=== PATIENT | male | born 1990 | race Caucasian/White ===

== ENCOUNTER 2016-07-11 17:57 | Emergency (ER) | payer SELFPAY ==
[~2016-07-11] VITALS: Ht 167.6 cm; Wt 75.0 kg
[2016-07-11 18:00] VITALS: BP 127/73; PULSE 73; RESP 16; TEMP 98.2; O2SAT 98
--- NOTE | 2016-07-11 18:21 | PD ---
HPI Chief Complaint: Chest Pain Time Seen by Provider: 18:14 Travel History International Travel<30 days: No Contact w/Intl Traveler<30days: No Traveled to known affect area: No History of Present Illness HPI 25-year-old male here for evaluation of chest pain. The patient reports having intermittent episodes of chest pain for quite some time now. Currently he is chest pain-free. He states that the frequency of his pain has been increasing, so he became concerned and decided to be evaluated today. He reports that the pains that he experiences are sharp, substernal, lasted for several seconds. No modifying factors. No known history of cardiac disease. He believes his mom had cardiac disease and believes it was secondary to illicit drug use. He denies using any illicit drugs. He does not smoke. No fevers, chills, cough, or recent illness. No paresthesias or motor deficits. No dyspnea. No history of DVT or PE. No hemoptysis. PFSH Past Medical History Medical History: Denies Significant Hx Diminished Hearing: No Influenza Vaccination: Yes Past Surgical History Surgical History: No Previous Surgery Social History Alcohol Use: Yes (rarely) Tobacco Use: No Substance Use: No Allergies-Medications (Allergen,Severity, Reaction): Coded Allergies: No Known Allergies (Unverified , 07/14/15) Reported Meds & Prescriptions Reported Meds & Active Scripts Active No Active Prescriptions or Reported Medications Review of Systems Except as stated in HPI: all other systems reviewed are Neg Physical Exam Narrative GENERAL: Well-developed, well-nourished, comfortable, no acute distress. SKIN: Warm and dry. No rash. HEAD: Atraumatic. Normocephalic. EYES: Pupils equal and round. No scleral icterus. No injection or drainage. ENT: No nasal bleeding or discharge. Mucous membranes pink and moist. NECK: Trachea midline. No JVD. CARDIOVASCULAR: Regular rate and rhythm. Distal pulses brisk and equal bilaterally. RESPIRATORY: No accessory muscle use. Clear to auscultation. Breath sounds equal bilaterally. GASTROINTESTINAL: Abdomen soft, non-tender, nondistended. MUSCULOSKELETAL: No obvious deformities. No clubbing. No cyanosis. No edema. NEUROLOGICAL: Awake and alert. No obvious cranial nerve deficits. Motor grossly within normal limits. Normal speech. PSYCHIATRIC: Appropriate mood and affect; insight and judgment normal. Data Data Last Documented VS Vital Signs Date Time Temp Pulse Resp B/P Pulse Ox O2 Delivery O2 Flow Rate FiO2 07/11/16 18:34 80 16 168/90 98 Room Air 07/11/16 18:00 98.2 Orders Electrocardiogram (07/11/16 ) Basic Metabolic Panel (Bmp) (07/11/16 18:19) Ckmb (Isoenzyme) Profile (07/11/16 18:19) Complete Blood Count With Diff (07/11/16 18:19) Troponin I (07/11/16 18:19) Chest, Single Ap (07/11/16 18:19) Ecg Monitoring (07/11/16 18:19) Iv Access Insert/Monitor (07/11/16 18:19) Oximetry (07/11/16 18:19) Sodium Chloride 0.9% Flush (Ns Flush) (07/11/16 18:30) CKMB (07/11/16 18:25) CKMB% (07/11/16 18:25) Labs Laboratory Tests Test 07/11/16 18:25 White Blood Count 8.8 TH/MM3 Red Blood Count 5.35 MIL/MM3 Hemoglobin 15.9 GM/DL Hematocrit 47.6 % Mean Corpuscular Volume 88.9 FL Mean Corpuscular Hemoglobin 29.8 PG Mean Corpuscular Hemoglobin 33.5 % Concent Red Cell Distribution Width 12.9 % Platelet Count 240 TH/MM3 Mean Platelet Volume 8.8 FL Neutrophils (%) (Auto) 41.9 % Lymphocytes (%) (Auto) 45.3 % Monocytes (%) (Auto) 9.4 % Eosinophils (%) (Auto) 2.8 % Basophils (%) (Auto) 0.6 % Neutrophils # (Auto) 3.7 TH/MM3 Lymphocytes # (Auto) 4.0 TH/MM3 Monocytes # (Auto) 0.8 TH/MM3 Eosinophils # (Auto) 0.2 TH/MM3 Basophils # (Auto) 0.1 TH/MM3 CBC Comment DIFF FINAL Differential Comment Sodium Level 140 MEQ/L Potassium Level 3.7 MEQ/L Chloride Level 103 MEQ/L Carbon Dioxide Level 29.3 MEQ/L Anion Gap 8 MEQ/L Blood Urea Nitrogen 18 MG/DL Creatinine 1.28 MG/DL Estimat Glomerular Filtration 70 ML/MIN Rate Random Glucose 70 MG/DL Calcium Level 9.1 MG/DL Total Creatine Kinase 366 U/L Creatine Kinase MB 7.5 NG/ML Creatine Kinase MB % 2.0 % Troponin I LESS THAN 0.02 NG/ML MDM Medical Decision Making Medical Screen Exam Complete: Yes Emergency Medical Condition: Yes Interpretation(s) EKG: Sinus, rate 100, normal axis, normal intervals, no acute ischemic abnormality. Differential Diagnosis Atypical chest pain, ACS, pneumothorax, pericarditis, PE, pneumonia, musculoskeletal pain Narrative Course Vital signs reviewed. CBC is unremarkable. BMP is unremarkable. Cardiac enzymes are negative. Chest x-ray shows no acute disease. The patient was made aware of all findings. He is resting comfortably. I do not believe his chest pain is cardiopulmonary in nature. He is PERC negative making PE not likely. I believe he is stable for discharge home with outpatient follow-up with a primary care physician this week. He was informed on when to return to the emergency department. He verbalizes understanding and agreement with plan. Diagnosis Primary Impression: Atypical chest pain Referrals: Primary Care Physician 3 days Additional Instructions: Follow-up with a primary care physician this week. Return to the emergency department for worsening symptoms or any other concerns. Scripts No Active Prescriptions or Reported Meds Disposition: 01 DISCHARGE HOME Condition: Stable James Garrett MD Jul 11, 2016 18:21
[2016-07-11] MEDS ORDERED: SODIUM CHLORIDE 0.9% FLUSH 5 ML FLUSH IVF PRN (18:30)
[2016-07-11 18:34] VITALS: BP 168/90; PULSE 80; RESP 16; O2SAT 98
--- NOTE | 2016-07-11 19:05 | RADRPT ---
EXAM DATE/TIME: 07/11/2016 18:42 [facility] COMPARISON: No previous studies available for comparison. INDICATIONS : Intermittent chest pain. MEDICAL HISTORY : None. SURGICAL HISTORY : None. ENCOUNTER: Initial ACUITY: 1 year PAIN SCORE: 3/10 LOCATION: Bilateral chest FINDINGS: A single view of the chest demonstrates the lungs to be symmetrically aerated without evidence of mas s, infiltrate or effusion. The cardiomediastinal contours are unremarkable. Osseous structures are intact. CONCLUSION: No evidence of acute cardiopulmonary disease. Rolando Islas MD on July 11, 2016 at 19:04 Board Certified Radiologist. This report was verified electronically.
[2016-07-11 19:06] LABS: AUTOMATED NEUTROPHIL # 3.7 TH/MM3 (1.8-7.7); BASOPHIL # 0.1 TH/MM3 (0-0.2); BASOPHIL % 0.6 % (0.0-2.0); EOSINOPHIL # 0.2 TH/MM3 (0-0.4); EOSINOPHIL % 2.8 % (0.0-4.0); HEMATOCRIT 47.6 % (39.0-51.0); HEMO FLAGS DIFF FINAL; LYMPH % 45.3 % (9.0-44.0); MEAN CELL VOLUME 88.9 FL (80.0-100.0); MEAN CORPUSCULAR HEMOGLOBIN 29.8 PG (27.0-34.0); MEAN CORPUSCULAR HGB CONC 33.5 % (32.0-36.0); MONO % 9.4 % (0.0-8.0); NEUT % 41.9 % (16.0-70.0); PLATELET COUNT 240 TH/MM3 (150-450); RED BLOOD COUNT 5.35 MIL/MM3 (4.50-5.90); RED CELL DISTRIBUTION WIDTH 12.9 % (11.6-17.2); WHITE BLOOD COUNT 8.8 TH/MM3 (4.0-11.0)
[2016-07-11 19:15] LABS: ANION GAP 8 MEQ/L (5-15); BICARBONATE 29.3 MEQ/L (21.0-32.0); BLOOD UREA NITROGEN 18 MG/DL (7-18); CHLORIDE 103 MEQ/L (98-107); GLOMERULAR FILTRATION RATE 70 ML/MIN (>89); POTASSIUM 3.7 MEQ/L (3.5-5.1); SODIUM (NA) 140 MEQ/L (136-145)
[2016-07-11 19:20] LABS: CREATINE KINASE 366 U/L (39-308)
[2016-07-11 19:32] LABS: CKMB 7.5 NG/ML (0.5-3.6)
[2016-07-11 20:06] VITALS: BP 117/60
--- NOTE | 2016-07-12 10:37 | EKG ---
Date Performed: 07/11/2016 Time Performed: 18:16:19 PTAGE: 25 years EKG: SINUS TACHYCARDIA ABNORMAL RHYTHM ECG NO PREVIOUS TRACING DOCTOR: Sid Jamison Interpretating Date/Time 07/12/2016 10:34:22
== END 2016-07-11 20:23 | disposition home or self-care (01) ==
LOC: NEPA 17:57
DX: R07.89 Other chest pain (principal); R00.0 Tachycardia, unspecified
CPT/HCPCS: 71010; 80048; 82550; 82552; 84484; 85025; 93005